=== PATIENT | female | born 1960 | race Caucasian/White ===

== ENCOUNTER → 2024-04-24 | Outpatient (CLI) | payer OTHER ==
--- NOTE | 2024-04-24 13:08 | HMCIMG ---
DEXA BONE DENSITY SURVEY REASON: Unspecified menopausal and perimenopausal disorder COMPARISON: None TECHNIQUE: DEXA bone densitometry was performed in the lumbar spine and left hip. FINDINGS: Mean bone mass density in the spine is 0.705 g/sq cm, T score -3.1 corresponding with osteoporosis. Femoral neck T score is -3.4 also consistent with osteoporosis. IMPRESSION: 1. Osteoporosis corresponding with a high fracture risk.
== END | disposition home or self-care (01) ==
LOC: RAH 10:55
PROVIDERS: ATTEND Nurse Practitioner Family
DX: M81.0 Age-related osteoporosis without current pathological fracture (principal); N95.9 Unspecified menopausal and perimenopausal disorder
CPT/HCPCS: 77080